=== PATIENT | female | born 1955 | race Caucasian/White ===

== ENCOUNTER 2024-12-12 12:03 | Inpatient (IN) | payer MEDICARE, OTHER ==
[2024-12-12] MEDS ORDERED: Glucagon 1 MG/ML KIT IM PRN (14:02)
[2024-12-12] MEDS ORDERED: Dextrose 50% Abboject 50 ML SYRINGE SLOW IVP PRN (14:02)
[2024-12-12] MEDS ORDERED: Ondansetron PF 4 MG/2 ML Vial IVP PRN (14:02)
[2024-12-12 14:04] VITALS: BMI 29.0
[2024-12-12] MEDS: HYDROcodone/Acetaminophen 5/325 mg Tablet PO PRN (15:08)
[2024-12-12] MEDS: Acetaminophen 325 MG TAB PO PRN (17:04)
[2024-12-12] MEDS: hydrALAZINE 20 MG/ML VIAL SLOW IVP PRN (17:15)
[2024-12-12] MEDS: Senokot S 8.6-50 MG TAB PO SCH (20:45)
[2024-12-13 05:41] LABS: #Basophils 0.04 10x3/uL (0.0-0.2); #Eosinophils 0.05 10x3/uL (0.0-0.7); #Monocytes 0.91 10x3/uL (0.11-0.59); #Neutrophils 7.81 10x3/uL (1.40-6.50); %Basophils 0.4 % (0.0-1.0); %Eosinophils 0.5 % (0.0-10.0); %Lymphocytes 12.8 % (21.0-51.0); %Monocytes 9.0 % (0.0-10.0); %Neutrophils 76.9 % (42.0-75.0); Hematocrit 39.9 % (36.0-47.0); Hemoglobin 13.3 g/dL (12.0-16.0); Mean Corpuscular Hemoglobin 30.8 pg (27.0-31.0); Mean Corpuscular Volume 92.4 fL (78.0-98.0); Platelet Count 172 10x3/uL (130-400); Red Blood Cell (RBC) Count 4.32 mill/uL (4.20-5.40); White Blood Cell (WBC) Count 10.15 10x3/uL (4.8-10.8)
[2024-12-13 05:53] LABS: Anion Gap 15 mmol/L (10-20); BUN (Urea Nitrogen) 11 mg/dL (9.8-20.1); Calc. Creatinine Clearance 119 mL/min (70-130); Calcium 9.4 mg/dL (7.8-10.44); Carbon Dioxide 21 mmol/L (23-31); Chloride 105 mmol/L (98-107); Glucose 109 mg/dL (80-115); Potassium 3.5 mmol/L (3.5-5.1); Sodium 137 mmol/L (136-145)
[2024-12-13] MEDS ORDERED: CEFAZOLIN 2 GM VIAL ONE (12:00)
[2024-12-13] MEDS ORDERED: Ondansetron PF 4 MG/2 ML Vial ONE (12:47)
[2024-12-13] MEDS ORDERED: Lidocaine 1% PF 5 ML VIAL ONE (12:47)
[2024-12-13] MEDS ORDERED: PROPOFOL 20 ML ONE (12:47)
[2024-12-13] MEDS ORDERED: fentaNYL PF 100 MCG/2 ML SYRINGE ONE (14:32)
[2024-12-14] MEDS: Methocarbamol 500 MG TAB PO PRN (04:48)
[2024-12-14 06:21] LABS: #Basophils 0.03 10x3/uL (0.0-0.2); #Eosinophils 0.05 10x3/uL (0.0-0.7); #Monocytes 1.07 10x3/uL (0.11-0.59); #Neutrophils 7.73 10x3/uL (1.40-6.50); %Basophils 0.3 % (0.0-1.0); %Eosinophils 0.5 % (0.0-10.0); %Lymphocytes 11.8 % (21.0-51.0); %Monocytes 10.6 % (0.0-10.0); %Neutrophils 76.4 % (42.0-75.0); Hematocrit 37.3 % (36.0-47.0); Hemoglobin 12.2 g/dL (12.0-16.0); Mean Corpuscular Hemoglobin 30.9 pg (27.0-31.0); Mean Corpuscular Volume 94.4 fL (78.0-98.0); Platelet Count 152 10x3/uL (130-400); Red Blood Cell (RBC) Count 3.95 mill/uL (4.20-5.40); White Blood Cell (WBC) Count 10.11 10x3/uL (4.8-10.8)
[2024-12-14 06:32] LABS: Anion Gap 13 mmol/L (10-20); BUN (Urea Nitrogen) 11 mg/dL (9.8-20.1); Calc. Creatinine Clearance 89 mL/min (70-130); Calcium 8.8 mg/dL (7.8-10.44); Carbon Dioxide 26 mmol/L (23-31); Chloride 103 mmol/L (98-107); Glucose 109 mg/dL (80-115); Potassium 3.4 mmol/L (3.5-5.1); Sodium 139 mmol/L (136-145)
[2024-12-14] MEDS: Enoxaparin 40 MG (0.4 mL) SYRINGE SC SCH (09:26)
[2024-12-14 12:07] VITALS: BP 119/74; TEMP 99.1
== END 2024-12-14 12:21 | disposition home or self-care (01) | DRG 494 ==
LOC: SURG B 13:47
PROVIDERS: ADMIT Surgery; ATTEND Hospitalist
PROC: 0QSH04Z Reposition Left Tibia with Internal Fixation Device, Open Approach (ICD-10-PCS; principal; 2024-12-13)
PROC: 3E03329 Introduction of Other Anti-infective into Peripheral Vein, Percutaneous Approach (ICD-10-PCS; 2024-12-13)
PROC: 3E033XZ Introduction of Vasopressor into Peripheral Vein, Percutaneous Approach (ICD-10-PCS; 2024-12-13)
DX: S82.142A Displaced bicondylar fracture of left tibia, initial encounter for closed fracture (principal); F32.A Depression, unspecified; F17.200 Nicotine dependence, unspecified, uncomplicated; F10.90 Alcohol use, unspecified, uncomplicated; F19.90 Other psychoactive substance use, unspecified, uncomplicated; W19.XXXA Unspecified fall, initial encounter
CPT/HCPCS: 36415; 80048; 85025; C1713; C1889; J0169; J0360; J0665; J2250; J2704